=== PATIENT | male | born 1950 | race Two or more races ===

== ENCOUNTER 2020-06-25 16:15 | Emergency (ER) | payer OTHER ==
[~2020-06-25] VITALS: Ht 167.6 cm; Wt 99.3 kg
[2020-06-25 16:26] VITALS: Ht 167.6 cm; Wt 99.3 kg
[2020-06-25 17:17] VITALS: BP 120/71
== END 2020-06-25 17:17 | disposition home or self-care (01) ==
LOC: ED 16:15
DX: M10.062 Idiopathic gout, left knee (principal)
CPT/HCPCS: J1885; J7512